=== PATIENT | female | born 1990 | race Caucasian/White ===

== ENCOUNTER 2018-05-16 19:00 | Emergency (ER) | payer OTHER ==
[~2018-05-16] VITALS: Ht 177.8 cm; Wt 61.7 kg
[2018-05-16] MEDS ORDERED: ROBAXIN 750 MG750 M1 PO (19:32)
[2018-05-16] MEDS ORDERED: TRAMADOL 50 MG50 MG PO (19:32)
[2018-05-16] MEDS ORDERED: IBUPROFEN 600600 M1 PO (19:32)
[2018-05-16] MEDS ORDERED: NAPROSYN500 MG PO (19:57)
[2018-05-16 19:58] VITALS: BP 126/75
== END 2018-05-16 19:58 | disposition home or self-care (01) ==
LOC: M.ERS 19:00
DX: S16.1XXA Strain of muscle, fascia and tendon at neck level, initial encounter (principal); F17.210 Nicotine dependence, cigarettes, uncomplicated; V49.29XA Unspecified car occupant injured in collision with other motor vehicles in nontraffic accident, initial encounter; Y93.89 Activity, other specified; Y92.89 Other specified places as the place of occurrence of the external cause; Y99.8 Other external cause status